=== PATIENT | female | born 1955 | race Caucasian/White ===

== ENCOUNTER 2017-02-16 15:05 | Observation (INO) ==
[2017-02-16] MEDS ORDERED: Aspirin 325 MG TABLET PO ONE (16:07)
--- NOTE | 2017-02-16 16:09 | Emergency Department Note ---
Disposition Clinical Impression: Chest pain Qualifiers: Chest pain type: unspecified Qualified Code(s): R07.9 - Chest pain, unspecified Disposition: Admitted As Inpatient Condition: Good Time of Disposition: 17:15 Chest Pain HPI - General Chief Complaint: ED Chest Pain Stated Complaint: CP Time Seen by Provider: 02/16/17 15:20 Source: patient Limitations: no limitations Vital Signs Reviewed: Yes Nursing Notes Reviewed: Yes - History of Present Illness HPI Narrative: 61-year-old female history hypertension, hyperlipidemia, diabetes presents with chest pain. Describes that chest pressure in the chest radiation up the jaw. Some associated shortness of breath and nausea no vomiting. Worse with exertion. She was instructed to come here by her primary care physician. Denies history of cardiac ischemic disease. Denies any history of blood clots, cancer, surgery, or hospitalization. No prior cardiac evaluation with echocardiogram, stress tests or heart catheterization. No family history of cardiac disease. Denies any other symptoms such as recent illness or fever, cough. Severity scale (1-10): 7 - Related Data Home Medications Medication Instructions Recorded Confirmed Lisinopril [Zestril] 40 mg PO DAILY 02/16/17 02/16/17 Pravastatin Sodium [Pravachol] 40 mg PO DAILY 02/16/17 02/16/17 metFORMIN [Glucophage] 500 mg PO BID 02/16/17 02/16/17 Allergies Allergy/AdvReac Type Severity Reaction Status Date / Time azithromycin Allergy Hives Verified 02/16/17 17:24 All systems ED: reviewed and negative except as stated. Review of Systems: As Per HPI Constitutional: Denies: fever, chills ENT ED: Denies: congestion, dysphagia Cardiovascular: Reports: chest pain, dyspnea on exertion Respiratory: Denies: cough, dyspnea Gastrointestinal: Reports: nausea. Denies: abdominal pain, vomiting Genitourinary: Denies: urgency, dysuria Musculoskeletal: Denies: back pain, neck pain Integumentary: Denies: rash, abrasion Neurological: Denies: headache, abnormal gait Psychiatric: Denies: anxiety, depression Chest Pain PMH - Past Medical History Medical history: Reports: diabetes, hyperlipidemia, hypertension Psychiatric history: Reports: no psych history - Social History Smoking Status: Never smoker Alcohol use: Reports: none Drug use: Reports: none Physical Exam - General Limitations: no limitations General appearance: alert, in no apparent distress - Head Head exam: atraumatic, normocephalic, normal inspection - Eye Eye exam: Present: normal appearance, PERRL, EOMI - ENT ENT exam: normal exam, normal oropharynx, mucous membranes moist - Neck Neck exam: Present: normal inspection, full ROM, trachea midline - Chest Chest inspection: Present: normal inspection, symmetric chest wall rise, tenderness (Midsternum) - Respiratory Respiratory exam: Present: normal lung sounds bilaterally. Absent: respiratory distress, wheezes - Cardiovascular Cardiovascular exam: Present: regular rate, normal rhythm, normal heart sounds. Absent: systolic murmur, diastolic murmur - Abdominal Exam Abdominal exam: Present: soft, Non-Tender, normal bowel sounds. Absent: tenderness, distention, guarding, rebound, rigidity - Extremities Exam Extremities exam: Present: normal inspection, full ROM, normal capillary refill. Absent: tenderness, pedal edema, calf tenderness - Back Exam Back exam: Present: normal inspection, full ROM. Absent: tenderness, CVA tenderness (R), CVA tenderness (L) - Neurological Exam Neurological exam: Present: alert, oriented X3 - Skin Skin exam: Present: warm, dry, intact, normal color Course Course Narrative: 61-year-old female presents with worsening chest pain gradually over the past several weeks. Explains exertional symptoms with shortness of breath. She has multiple risk factors including hypertension, hyperlipidemia diabetes. She has never smoked. No prior cardiac evaluation. No risk factors for DVT or PE. She has received a total of 3 nitro with minimal relief. She has received a full dose aspirin. Will treat her with morphine at this time. Oxygen saturation remains hundred percent on room air. She is not tachycardic. EKG does not show any acute ischemic changes. Troponin 0. His HEART score is 4. She will benefit admission for further evaluation. Patients in agreement with this plan. Impression is chest pain rule out ACS. - Consultations Consultation #1: Spoke with on-call hospitalist zuly Mosley to admit for chest pain R/O ACS. No further orders at this time Time: 17:15 Vital Signs Temperature 97.6 F 02/16/17 15:13 Pulse Rate 82 02/16/17 15:13 Respiratory Rate 16 02/16/17 15:13 Blood Pressure 129/80 02/16/17 15:13 O2 Sat by Pulse Oximetry 96 02/16/17 15:13 Temperature 97.6 F 02/16/17 15:13 Pulse Rate 87 02/16/17 16:58 Respiratory Rate 16 02/16/17 16:58 Blood Pressure 114/75 02/16/17 16:58 O2 Sat by Pulse Oximetry 94 02/16/17 16:58 Oxygen Delivery Oxygen Delivery Room Air Chest Pain - Medical Records Medical records reviewed: Yes I reviewed the patient's medical records. - Lab Data Lab results reviewed: Yes I reviewed the patient's lab results. Result diagrams: 02/16/17 16:04 02/16/17 16:04 Lab Results 02/16/17 02/16/17 02/16/17 Range/Units 16:04 16:04 16:04 WBC 11.5 H (4.3-11.1) K/mcL RBC 5.26 H (3.82-4.97) M/mcL Hgb 14.6 (11.5-15.4) g/dL Hct 44.8 (35.3-44.9) % MCV 85.2 (83.0-100.0) fL MCH 27.8 L (28.0-33.3) pg MCHC 32.6 (31.6-35.5) g/dL RDW 13.0 (11.5-14.5) % Plt Count 257 (140-400) K/mcL MPV 10.8 (9.4-12.4) fL Immature Gran % 0.4 (0-4) % Seg Neutrophils % 54.6 % Lymphocytes % 34.8 % Monocytes % 7.3 % Eosinophils % 2.1 % Basophils % 0.8 % Neutrophils # 6.3 (1.6-8.9) K/mcL Lymphocytes # 4.0 (0.6-4.6) K/mcL Monocytes # 0.8 (0.0-1.3) K/mcL Eosinophils # 0.2 (0.0-0.6) K/mcL Basophils # 0.1 (0.0-0.2) K/mcL Sodium 136 (136-145) mEq/L Potassium 4.1 (3.5-4.5) mEq/L Chloride 105 (98-109) mEq/L Carbon Dioxide 22 (19-29) mEq/L BUN 16 (7-20) mg/dL Creatinine 0.94 (0.57-1.11) mg/dL Est GFR ( Amer) > 60 (> 60) Est GFR (Non-Af Amer) > 60 (> 60) BUN/Creatinine Ratio 17 (6-26) Glucose 109 H (70-99) mg/dL Calculated Osmolality 284 (280-300) Calcium 10.5 (8.6-10.8) mg/dL Troponin I 0.00 (0-0.03) ng/mL - Radiology Data Radiology results reviewed: Yes I reviewed the patient's radiology results. Chest X-Ray 02/16/17 15:44 IMPRESSION: No active cardiopulmonary disease D/ / Griffin Cedeño MD / Griffin Cedeño MD Interpreting Provider: Griffin Cedeño MD - EKG Data EKG attestation: Yes I reviewed and interpreted this EKG. EKG results narrative: EKG performed 1524 normal sinus rhythm 76 bpm, normal axis, good R wave progression, no ST elevations or depression, no T wave inversion, intervals are within normal limits. No old EKG available for comparison. No acute ischemic changes. Heart Score - Score History: Moderately Suspicious EKG: Normal Age: 45-65 Risk Factors: Equal/Greater than 3 risk factor or history of atherosclerotic disease Troponin: Less than normal limit HEART Score Total: 4
--- NOTE | 2017-02-16 16:09 | Emergency Department Note ---
START Narrative - START START: I examined this patient and my medical decision-making was reviewed with the Resident Physician. I agree with the documented findings, disposition and treatment plan as described except to the extent set forth below. 61-year-old female presents emergency room for 3 weeks of chest pressure. Went to her doctor today center to the ER for evaluation. She does feel like its getting worse. Seems to be worse with activity. Better at rest. No history of heart problems. Patient's rating her pressure in her chest as 7 out of 10. No other associated symptoms. She again has no history of any coronary disease. Low risk factors that she is a female. We will check ACS rule out here in the ER. She will be given nitroglycerin and aspirin.
[2017-02-16 16:27] LABS: BUN/Creatinine Ratio 17 (6-26); Basophils # 0.1 K/mcL (0.0-0.2); Basophils % 0.8 %; Blood Urea Nitrogen 16 mg/dL (7-20); Calcium 10.5 mg/dL (8.6-10.8); Carbon Dioxide 22 mEq/L (19-29); Chloride 105 mEq/L (98-109); Eosinophils # 0.2 K/mcL (0.0-0.6); Eosinophils % 2.1 %; Glucose 109 mg/dL (70-99); Hematocrit 44.8 % (35.3-44.9); Hemoglobin 14.6 g/dL (11.5-15.4); Immature Granulocytes % 0.4 % (0-4); Lymphocytes % 34.8 %; Mean Corpuscular HGB Conc 32.6 g/dL (31.6-35.5); Mean Corpuscular Hemoglobin 27.8 pg (28.0-33.3); Mean Corpuscular Volume 85.2 fL (83.0-100.0); Mean Platelet Volume 10.8 fL (9.4-12.4); Monocytes # 0.8 K/mcL (0.0-1.3); Monocytes % 7.3 %; Neutrophils # 6.3 K/mcL (1.6-8.9); Osmolality,Calculated 284 (280-300); Platelet Count 257 K/mcL (140-400); Potassium 4.1 mEq/L (3.5-4.5); Red Blood Count 5.26 M/mcL (3.82-4.97); Segmented Neutrophils % 54.6 %; Sodium 136 mEq/L (136-145); eGFR For African Americans > 60 (> 60); eGFR For Non-African Americans > 60 (> 60)
[2017-02-16] MEDS: Nitroglycerin 0.4 MG TAB.SUBL SL PRN ×3 (16:36→17:02)
[2017-02-16] MEDS ORDERED: *HR* Morphine 2 MG/ML SYRINGE IVP ONE (17:20)
[2017-02-16] MEDS ORDERED: Ondansetron ODT 4 MG TAB.RAPDIS SL PRN (21:39)
[2017-02-16] MEDS ORDERED: Acetaminophen 325 MG TABLET PO PRN (21:39)
[2017-02-16] MEDS ORDERED: Ibuprofen 400 MG TABLET PO ONE (21:40)
--- NOTE | 2017-02-16 21:51 | Internal Med History&Physical ---
Date of Encounter: 02/16/17 Time of Encounter: 21:00 Assessment and Plan (1) Chest pain Current visit: Yes Status: Acute Atypical chest pain symptoms since the pain is pain has been constant for 2 weeks, non-substernal, and not relieved with ASA or nitroglycerin. EKG reveals no ST-elevations or ischemic changes. CXR reveals no cardiopulmonary disease. ROSLYN score 2. Her chest pain symptoms seem to be non-anginal. She had reproducible chest pain with palpation. Most likely muscular vs. costochondritis. - Continue to trend troponin. - Pain control with tylenol and motrin PRN. - Exercise stress test in the AM. Qualifiers: Chest pain type: unspecified Qualified Code(s): R07.9 - Chest pain, unspecified (2) Hypertension Current visit: Yes Status: Acute BP stable at 112/70. - Continue home med of lisinopril. Qualifiers: Hypertension type: unspecified Qualified Code(s): I10 - Essential (primary ) hypertension (3) Hyperlipidemia Current visit: Yes Status: Acute - Continue home med of statin. Qualifiers: Hyperlipidemia type: unspecified Qualified Code(s): E78.5 - Hyperlipidemia , unspecified (4) Diabetes mellitus Current visit: Yes Status: Acute Patient was recently diagnosed with DM three weeks ago. She has been using metformin to control her blood glucose levels. Her glucose level is curretnly at 109. - Glucose level stable. - Acu-checks q6hr. Qualifiers: Diabetes mellitus type: type 2 Diabetes mellitus complication status: without complication Diabetes mellitus cheesemaker insulin use: without cheesemaker use Qualified Code(s): E11.9 - Type 2 diabetes mellitus without complications (5) DVT prophylaxis Current visit: Yes Status: Acute - Heparin 5000U Q12HR. Internal Medicine - H&P: HPI Chief complaint: Chest pain Admitted From: Emergency Dept History of present illness: Ms. Flores is a 61 year old female with a PMH of DM HLD, and HTN that presents for chest pain x 2 weeks. Patient describes the pain as constant and pressure- like. She says that it has been constant, located across her entire chest, radiates up her neck to her R ear. She rates the pain as a 8/10 in pain scale. She says wearing tight clothes seems to exacerbate her pain. She says taking ibuprofren and flexeril seems to help. She denies taking any ASA or nitroglycerin. She says she gets some shortness of breath with exertion, but says it is mainly due to the pain that she is getting. She denies any recent travel or surgery. She admits to nausea and chills, but she denies any fever, vomiting, or diarrhea. Past Med Surg Social Fam HX - Past Medical History Medical history: diabetes, hyperlipidemia, hypertension Psychiatric history: no psych history - Past Surgical History Surgical History: , other - Social History Smoking Status: Never smoker Smokeless Tobacco Status: No Alcohol use: none Drug use: none - Family History Sister Living Status: Still Living Hx Family Cardiac Disorders: Yes Hx Family Respiratory Disorders: No Hx Family Cancer: No Hx Family GI Disorders: Yes Hx Family Genitourinary Disorders: No Hx Family Endocrine Disorder: Yes Hx Family Musculoskeletal Disorders: No Hx Family Neuromuscular Disorders: No Hx Family Neurologic Disorders: No Hx Family HEENT Disorders: No Hx Family Autoimmune Disorders: No Hx Family Reproductive Disorders: No Hx Family Psychosocial Disorders: No Hx Family Medical Disorders: No Internal Medicine - H&P: Meds Lisinopril [Zestril] 40 mg PO DAILY 02/16/17 [History] Pravastatin Sodium [Pravachol] 40 mg PO DAILY 02/16/17 [History] metFORMIN [Glucophage] 500 mg PO BID 02/16/17 [History] 3 Allergy/AdvReac Type Severity Reaction Status Date / Time azithromycin Allergy Hives Verified 02/16/17 17:24 All Systems PM: A 10-system review of systems was performed and is negative for pertinent findings except as documented above in the HPI. - Constitutional Constitutional: as per HPI - Cardiovascular Cardiovascular ROS IM: chest pain, dyspnea on exertion - Respiratory Respiratory: pain on inspiration, no cough, no wheezing - Gastrointestinal Gastrointestinal: abdominal pain (Mid-epigastric pain.), nausea, no constipation , no diarrhea, no melena, no vomiting - Musculoskeletal Musculoskeletal ROS IM: myalgias, neck pain, stiffness - Constitutional Vitals: Temp Pulse Resp BP Pulse Ox 97.8 F 79 16 112/70 100 02/16/17 18:01 02/16/17 18:01 02/16/17 18:01 02/16/17 18:01 02/16/17 18:01 General appearance: Present: A&O X 3, no acute distress, answers questions appropriately - Respiratory Respiratory exam: Present: chest wall tenderness (Tenderness with palpation. ), CTAB. Absent: respiratory distress, rhonchi, wheezes - Cardiovascular Cardiovascular exam: Present: RRR, +S1, +S2 - GI/Abdominal GI/Abdominal exam: Present: normal bowel sounds, soft, tenderness (Mild tenderness to RUQ with palpation. ). Absent: guarding, rebound - Expanded GI/Abdominal Exam GI/Abdominal exam expanded: Absent: Gamboa's sign, Rovsing's sign, tenderness at McBurney's Point - Extremities Exam Extremities exam: Present: full ROM, normal capillary refill, normal inspection , radial pulses palpable and symmetrical. Absent: pedal edema, tenderness Internal Med - H&P Results - Labs CBC & Chem 7: 02/16/17 16:04 02/16/17 16:04
[2017-02-16] MEDS: Lisinopril 20 MG TABLET PO SCH (22:48)
[2017-02-16] MEDS ORDERED: Ketorolac 30 MG/ML VIAL IVP ONE (23:10)
--- NOTE | 2017-02-16 23:21 | Event Note ---
Date of Encounter: 02/16/17 Time of Encounter: 23:21 Patient examined with medical lab technologist. Agree with assessment and plan
[2017-02-17] MEDS ORDERED: *HR* Heparin 5,000 UNIT/ML VIAL SQ SCH (06:00)
[2017-02-17] MEDS ORDERED: Regadenoson 0.4 MG/5 ML SYRINGE IVP ONE (06:42)
[2017-02-17] MEDS: Lisinopril 20 MG TABLET PO SCH (10:03)
[2017-02-17] MEDS ORDERED: Ketorolac 30 MG/ML VIAL IVP ONE (10:04)
[2017-02-17 10:46] VITALS: BP 87/54
--- NOTE | 2017-02-17 12:21 | Discharge Summary ---
Date of Encounter: 02/17/17 Time of Encounter: 12:19 - Discharge Diagnosis (1) Chest pain Priority: Primary Status: Acute Comments: nulcear stress normal ef 70% ok to discharge and fu with pcp Qualifiers: Chest pain type: unspecified Qualified Code(s): R07.9 - Chest pain, unspecified (2) Hypertension Priority: Secondary Status: Chronic Comments: well controlled Qualifiers: Hypertension type: essential hypertension Qualified Code(s): I10 - Essential (primary) hypertension (3) Hyperlipidemia Priority: Secondary Status: Chronic Comments: chronic Qualifiers: Hyperlipidemia type: pure hypercholesterolemia Qualified Code(s): E78.00 - Pure hypercholesterolemia, unspecified; E78.0 - Pure hypercholesterolemia (4) Diabetes mellitus Priority: Secondary Status: Chronic Qualifiers: Diabetes mellitus type: type 2 Diabetes mellitus complication status: without complication Diabetes mellitus intermission coordinator insulin use: without residential use Qualified Code(s): E11.9 - Type 2 diabetes mellitus without complications - Discharge Medications Home Medications: Lisinopril [Zestril] 40 mg PO DAILY 02/16/17 [History] Pravastatin Sodium [Pravachol] 40 mg PO DAILY 02/16/17 [History] metFORMIN [Glucophage] 500 mg PO BID 02/16/17 [History] Allergies/Adverse Reactions: 3 Allergy/AdvReac Type Severity Reaction Status Date / Time azithromycin Allergy Hives Verified 02/16/17 17:24 Procedures/tests Complete & Pending: Procedures Performed prior 72 hours Category Date Time Status NM elias perf SPECT multi [NM] Routine Exams 02/17/17 06:12 Taken SP pharm nuclear stress Routine Y 02/17/17 07:50 Completed Date of admission: 02/16/17 17:24 Primary care physician: RADHIKA Linares Discharging clinician: Vignesh Nathan Anticipated date of discharge: 02/17/17 - Patient Status Disposition: Home, Self-Care Overall status at discharge: patient is back to baseline - Discharge Instructions - Diet and Activity Activity: other Diet: advance to your usual diet Hospital course: Ms. Flores is a 61 year old female - Time Spent with Patient Total time spent providing and/or coordinating discharge services: - Constitutional Vitals: Temp Pulse Resp BP Pulse Ox 97.7 F 77 16 87/54 98 02/17/17 10:41 02/17/17 10:41 02/17/17 10:41 02/17/17 10:41 02/17/17 10:41 General appearance: Present: A&O X 3, no acute distress, answers questions appropriately
--- NOTE | 2017-02-18 16:18 | Electrocardiograph Report ---
[place] [id number] Test Date: 2017-02-16 Pat Name: Colleen Flores Department: 104 Room: 3B Gender: F Registered Midwife: : 1955 Requested By: Anthony Curran Order Number: [id number] Reading MD: Justin Rose Measurements Intervals [place] Rate: 76 P: 37 CO: 121 QRS: 31 QRSD: 82 T: 39 QT: 366 QTc: 397 Interpretive Statements SINUS RHYTHM LOW QRS VOLTAGE IN PRECORDIAL LEADS Electronically Signed On 02-18-2017 16:17:16 EST by Justin Rose
== END 2017-02-17 13:21 | disposition home or self-care (01) ==
LOC: EMEROO 15:05 → 3BNU 15:05
PROVIDERS: ADMIT Internal Medicine; ATTEND Registered Nurse